=== PATIENT | male | born 1980 | race Caucasian/White ===

== ENCOUNTER 2022-08-16 17:34 | Emergency (ER) | payer SELFPAY ==
[~2022-08-16] VITALS: Ht 170.2 cm; Wt 95.5 kg
[2022-08-16 18:07] VITALS: BP 132/68
[2022-08-16] MEDS ORDERED: triamcinolone acetonide 40mg/ml inj IM ONE (18:50)
[2022-08-16] MEDS ORDERED: LORA10TA61 PO (18:55)
[2022-08-16] MEDS ORDERED: PRED20TA PO (18:55)
[2022-08-16] MEDS ORDERED: NAPR-56 PO (18:55)
[2022-08-16] MEDS ORDERED: PENI250T2 PO (18:55)
== END 2022-08-16 19:06 | disposition home or self-care (01) ==
LOC: ER 17:38
DX: L23.7 Allergic contact dermatitis due to plants, except food (principal); K08.89 Other specified disorders of teeth and supporting structures; Z87.891 Personal history of nicotine dependence
CPT/HCPCS: 96372; 99283; J3301